=== PATIENT | female | born 2000 | race Caucasian/White ===

== ENCOUNTER 2019-10-05 19:50 | Inpatient (IN) | payer OTHER ==
[~2019-10-05 19:50] MED LIST: DEXTROSE 5%-LACTATED RINGERS 500 ML IV ONE
[2019-10-05] MEDS ORDERED: DEXTROSE 5%-LACTATED RINGERS 500 ML IV ONE (20:50)
[2019-10-05] MEDS ORDERED: OXYTOCIN 30 UNITS in 0.9% NS 30 UNIT/500 ML INFUS.BAG IVPB ONE (21:16)
[2019-10-05] MEDS ORDERED: AMPICILLIN SODIUM 2 GM VIAL ONE (21:16)
[2019-10-05] MEDS: OXYTOCIN 30 UNITS in 0.9% NS 30 UNIT/500 ML INFUS.BAG IVPB SCH (21:30)
[2019-10-05] MEDS ORDERED: AMPICILLIN SODIUM 250 MG VIAL IVPUSH ONE (21:44)
[2019-10-05 21:58] VITALS: BMI 25.1
[2019-10-05] MEDS ORDERED: DINOPROSTONE 10 MG VAGINAL SUPPOSITORY VG ONE (22:00)
--- NOTE | 2019-10-05 22:08 | HP ---
Past Medical History - Admission Chief Complaint: Postdates History of Present Illness: 19 yo , @ 40 weeks gestation, EDC 10/02/19, presents for induction of labor. Upon admission she was 3cm dilated with intact membrane. History Source: Patient Limitations to Obtaining History: No Limitations - Past Medical History ...: 1 ...Para: 0 - Past Surgical History Past Surgical History: Yes: None Hx Myomectomy: No Hx Transabdominal Cerclage: No - Smoking History Have you smoked in the past 12 months: No - Alcohol/Substance Use Hx Alcohol Use: No History of Substance Use: reports: None - Social History Usual Living Arrangement: Yes: With Significant Other History of Recent Travel: No Home Medications - Allergies Allergies/Adverse Reactions: Allergies Allergy/AdvReac Type Severity Reaction Status Date / Time No Known Allergies Allergy Verified 10/05/19 20:37 - Home Medications Home Medications: Ambulatory Orders Vitamins (Sjr) - 1 tab PO DAILY 10/05/19 Review of Systems - Review of Systems Constitutional: reports: No Symptoms Eyes: reports: No Symptoms HENT: reports: No Symptoms Neck: reports: No Symptoms Cardiovascular: reports: No Symptoms Respiratory: reports: No Symptoms Gastrointestinal: reports: No Symptoms Genitourinary: reports: Pain Breasts: reports: No Symptoms Reported Musculoskeletal: reports: No Symptoms Integumentary: reports: No Symptoms Neurological: reports: No Symptoms Endocrine: reports: No Symptoms Hematology/Lymphatic: reports: No Symptoms Psychiatric: reports: No Symptoms Pain Intensity: 2 Physical Exam - Maternity Constitutional: Yes: Well Nourished Eyes: Yes: Conjunctiva Clear HENT: Yes: Atraumatic Neck: Yes: Supple Cardiovascular: Yes: Regular Rate and Rhythm Lungs: Clear to auscultation - Abdominal Exam/OB Number of Fetuses: Single Presentation: Vertex - Vaginal Exam/OB Dilatation (cm): 3 Effacement (%): 80 Amniotic Membrane Status: Intact Presentation: Vertex/Position Station: -2 - Physical Exam Extremities: Yes: WNL ...Motor Strength: WNL Psychiatric: Yes: Alert, Oriented Problem List - Problems (1) 40 weeks gestation of Problems reviewed: Yes Code(s): Z3A.40 - 40 WEEKS GESTATION OF Assessment/Plan 40 weeks gestation of Admit to L&D Induction with Pitocin GBS prophylaxis
[2019-10-05 22:14] LABS: BASO % 0.3 % (0-2.0); EOS % 0.5 % (0-4.5); HEMATOCRIT 33.9 % (32.4-45.2); HEMOGLOBIN 11.2 GM/dL (10.7-15.3); LYMPH % 16.6 % (8-40); MCH 27.6 pg (25.7-33.7); MCHC 33.2 g/dl (32.0-36.0); MEAN CELL VOLUME 83.1 fl (80-96); MEAN PLT VOLUME 7.8 fl (7.5-11.1); MONO % 5.2 % (3.8-10.2); NEUT % 77.4 % (42.8-82.8); PLATELET COUNT 370 K/MM3 (134-434); RBC 4.08 M/mm3 (3.60-5.2); RDW 14.9 % (11.6-15.6); WHITE BLOOD COUNT 11.4 K/mm3 (4.0-10.0)
[2019-10-05] MEDS ORDERED: AMPICILLIN - 2 GM in SODIUM CHLORIDE 100 ML IVPB ONE (22:14)
[2019-10-05 22:28] LABS: INR 0.92 (0.83-1.09); PROTHROMBIN TIME (PATIENT) 10.9 SEC (9.7-13.0)
[2019-10-05 22:31] LABS: ACTIVATED PTT 26.3 SECONDS (25.2-36.5)
[2019-10-05 22:40] LABS: BLOOD UREA NITROGEN 9.8 mg/dL (7-18); CALCIUM 8.8 mg/dL (8.5-10.1); CREATININE 0.6 mg/dL (0.55-1.3); POTASSIUM 4.1 mmol/L (3.5-5.1)
[2019-10-05] MEDS ORDERED: DEXTROSE 5%-LACTATED RINGERS 1,000 ML IV SCH (22:50)
[2019-10-06] MEDS: DEXTROSE 5%-LACTATED RINGERS 1,000 ML IV SCH (00:30)
[2019-10-06] MEDS ORDERED: AMPICILLIN SODIUM 1 GM VIAL ONE ×3 (01:09→08:54)
[2019-10-06] MEDS: AMPICILLIN - 1 GM in SODIUM CHLORIDE 100 ML IVPB SCH ×4 (01:30→13:47)
[2019-10-06] MEDS ORDERED: PROMETHAZINE HCL 25 MG/1 ML VIAL ONE (08:05)
[2019-10-06] MEDS ORDERED: BUTORPHANOL TARTRATE 1 MG/ML VIAL ONE ×2 (08:05)
[2019-10-06] MEDS ORDERED: BUTORPHANOL TARTRATE 2 MG/ML VIAL IVPUSH PRN (08:48)
[2019-10-06] MEDS ORDERED: PROMETHAZINE HCL 25 MG/1 ML VIAL IVPB PRN (08:49)
[2019-10-06] MEDS ORDERED: OXYTOCIN 20 UNITS in 0.9% NS 20 UNIT/1,000 ML INFUS.BAG IV ONE ×2 (12:04→13:51)
[2019-10-06] MEDS ORDERED: LIDOCAINE HCL 1% PRESERVATIVE FREE - 30ML VIAL ONE (12:04)
[2019-10-06] MEDS: OXYTOCIN 20 UNITS in 0.9% NS 20 UNIT/1,000 ML INFUS.BAG IV SCH (12:30)
[2019-10-06] MEDS ORDERED: ACETAMINOPHEN 325 MG TABLET (FP) PO PRN (12:40)
[2019-10-06] MEDS ORDERED: BENZOCAINE 20% 57 GM BOTTLE TP PRN (12:40)
[2019-10-06] MEDS ORDERED: WITCH HAZEL 50% (TUCKS) 40 PAD/JAR PAD TP PRN (12:40)
[2019-10-06] MEDS ORDERED: BENZOCAINE 28 GM HEMORRHOIDAL OINTMENT TP PRN (12:40)
[2019-10-06] MEDS ORDERED: METHYLERGONOVINE MALEATE 0.2 MG/1 ML AMP IM PRN (12:40)
[2019-10-06] MEDS ORDERED: BISACODYL 10 MG SUPP.RECT RC PRN (12:40)
[2019-10-06] MEDS ORDERED: IBUPROFEN 600 MG TABLET (FP) PO PRN (12:40)
--- NOTE | 2019-10-06 12:44 | PN ---
Delivery - Delivery Vaginal Delivery: Spontaneous Type of Anesthesia: Local Episiotomy/Laceration: None EBL (cc): 300 Delivery, Single - Feeding Plan Initial Plan: Elected not to breastfeed exclusively throughout hospitalization Remarks - Remarks Remarks: Normal spontaneous vaginal delivery of a live boy over intact perineum. Nose / Oropharynx suctioned @ perineum. Cord clamped and cut. Baby handed to nurse. Placenta expelled spontaneously intact Mother in stable condition.
[2019-10-06] MEDS: SENNOSIDES/DOCUSATE COMBO (SENNA PLUS) TABLET (UD) PO PRN (22:15)
[2019-10-06] MEDS: FERROUS SO4 325 MG TABLET (FP) PO SCH (22:15)
[2019-10-07 09:23] LABS: BASO % 0.3 % (0-2.0); EOS % 0.3 % (0-4.5); HEMATOCRIT 29.1 % (32.4-45.2); HEMOGLOBIN 9.8 GM/dL (10.7-15.3); LYMPH % 17.3 % (8-40); MCH 27.8 pg (25.7-33.7); MCHC 33.6 g/dl (32.0-36.0); MEAN CELL VOLUME 82.7 fl (80-96); MEAN PLT VOLUME 7.4 fl (7.5-11.1); MONO % 6.4 % (3.8-10.2); NEUT % 75.7 % (42.8-82.8); PLATELET COUNT 329 K/MM3 (134-434); RBC 3.52 M/mm3 (3.60-5.2); RDW 14.8 % (11.6-15.6); WHITE BLOOD COUNT 19.1 K/mm3 (4.0-10.0)
[2019-10-07] MEDS: PRENATAL VITAMINS W/ FOLIC ACID TABLET (FP) PO SCH (09:40)
[2019-10-07] MEDS: FERROUS SO4 325 MG TABLET (FP) PO SCH ×2 (09:40→21:35)
[2019-10-07] MEDS ORDERED: DIPHTH,PERTUSS(ACELL),TET 0.5 ML DISP.SYRIN IM ONE (10:00)
[2019-10-07] MEDS ORDERED: CEFAZOLIN 1 GM/D5W 1 GM/50 ML BAG IVPB ONE (10:41)
--- NOTE | 2019-10-07 10:43 | PN ---
Post Progress Note - Subjective Subjective: 19 yo Para 1, status post vaginal delivery, seen and evaluated, Doing well. Post Day: 1 Type of Delivery: Vital Signs: Vital Signs Temperature 98.1 F 10/07/19 06:09 Pulse Rate 93 H 10/07/19 06:09 Respiratory Rate 20 10/07/19 06:09 Blood Pressure 115/59 L 10/07/19 06:09 O2 Sat by Pulse Oximetry (%) Breast Exam: Yes: Soft Uterus: Yes: Fundus Firm Abdomen/GI: Yes: Abdomen soft, Tolerating PO Lochia: Yes: Rubra Lochia, amount: Small Extremities: Yes: Calves non-tender Perineum: Yes: Intact Activity: Ambulating - Labs Labs: CBC WBC 19.1 K/mm3 (4.0-10.0) H 10/07/19 08:35 RBC 3.52 M/mm3 (3.60-5.2) L 10/07/19 08:35 Hgb 9.8 GM/dL (10.7-15.3) L 10/07/19 08:35 Hct 29.1 % (32.4-45.2) L 10/07/19 08:35 MCV 82.7 fl (80-96) 10/07/19 08:35 MCH 27.8 pg (25.7-33.7) 10/07/19 08:35 MCHC 33.6 g/dl (32.0-36.0) 10/07/19 08:35 RDW 14.8 % (11.6-15.6) 10/07/19 08:35 Plt Count 329 K/MM3 (134-434) 10/07/19 08:35 MPV 7.4 fl (7.5-11.1) L 10/07/19 08:35 Absolute Neuts (auto) 14.5 K/mm3 (1.5-8.0) H 10/07/19 08:35 Neutrophils % 75.7 % (42.8-82.8) 10/07/19 08:35 Lymphocytes % 17.3 % (8-40) 10/07/19 08:35 Monocytes % 6.4 % (3.8-10.2) 10/07/19 08:35 Eosinophils % 0.3 % (0-4.5) 10/07/19 08:35 Basophils % 0.3 % (0-2.0) 10/07/19 08:35 Nucleated RBC % 0 % (0-0) 10/07/19 08:35 Problem List - Problems (1) 40 weeks gestation of Problems reviewed: Yes Code(s): Z3A.40 - 40 WEEKS GESTATION OF (2) Status post normal vaginal delivery Problems reviewed: Yes Code(s): [id number] - Assessment/Plan Status post vaginal delivery. Stable Continue routine care
[2019-10-07] MEDS: DEXTROSE 5%-LACTATED RINGERS 1,000 ML IV SCH (20:44)
[2019-10-07] MEDS: OXYTOCIN 30 UNITS in 0.9% NS 30 UNIT/500 ML INFUS.BAG IVPB SCH (20:44)
[2019-10-07] MEDS: OXYTOCIN 20 UNITS in 0.9% NS 20 UNIT/1,000 ML INFUS.BAG IV SCH (20:45)
[2019-10-07] MEDS: AMPICILLIN - 1 GM in SODIUM CHLORIDE 100 ML IVPB SCH (20:48)
[2019-10-07] MEDS: SENNOSIDES/DOCUSATE COMBO (SENNA PLUS) TABLET (UD) PO PRN (21:35)
--- NOTE | 2019-10-08 07:17 | DS ---
Physical Exam-SPECIAL EDUCATION ASSISTANT Vital Signs: Vital Signs Temperature 98.5 F 10/07/19 22:00 Pulse Rate 91 H 10/07/19 22:00 Respiratory Rate 18 10/07/19 22:00 Blood Pressure 113/74 10/07/19 22:00 O2 Sat by Pulse Oximetry (%) Constitutional: Yes: Well Nourished Eyes: Yes: Conjunctiva Clear HENT: Yes: Atraumatic Neck: Yes: Supple Cardiovascular: Yes: Regular Rate and Rhythm Respiratory: Yes: Regular Gastrointestinal: Yes: Normal Bowel Sounds External Genitalia: Yes: Normal Vaginal Exam: Yes: Normal Cervix: Yes: Normal Uterus: Yes: Firm ....Post : Yes: Uterus firm, Slight lochia rubra Breast(s): Yes: WNL Musculoskeletal: Yes: WNL Extremities: Yes: WNL Neurological: Yes: Alert, Oriented ...Motor Strength: WNL Psychiatric: Yes: Alert, Oriented Labs: CBC, BMP 10/07/19 08:35 10/05/19 21:30 Delivery - Delivery Vaginal Delivery: Spontaneous Type of Anesthesia: None Episiotomy/Laceration: None EBL (cc): 300 Delivery, Single - Stages of Labor Date 1st Stage Initiatied: 10/06/19 Time 1st Stage Initiated: 00:00 Date 2nd Stage Initiated: 10/06/19 Time 2nd Stage Initiated: 12:00 Date of Delivery: 10/06/19 Time of Delivery: 12:28 Time Placenta Delivered: 12:30 - Condition of Infant Board Handler/Manager Studio Present: Yes Name: Michael Delacruz Infant Gender: Male Weight: 7 lb 1 oz Position: Left, OA Total Hours ROM (Hrs/Mins): 4hrs 30min - 1 Minute Total Score: 9 5 Minutes Total Score: 9 - [place] Feeding Plan Initial Plan: Elected not to breastfeed exclusively throughout hospitalization Discharge Summary Problems reviewed: Yes Current Active Problems 40 weeks gestation of (Acute) Status post normal vaginal delivery (Acute) Procedures: Principal: Normal spontaneous vaginal delivery Hospital Course: Routine care Health Concerns: None Plan of Treatment: Ambulation Analgesia as needed F/U with MD in 6 weeks Goals: Resume regular activities in 6 weeks Condition: Good - Instructions Diet, Activity, Other Instructions: Regular diet No douching, no sexual intercourse x 6 weeks F/U with MD in 6 weeks If pain, fever, or heavy bleeding call M.D. Referrals: Lisa Vuong MD [Staff Physician] - Disposition: HOME - Home Medications Comprehensive Discharge Medication List: Ambulatory Orders Vitamins (Sjr) - 1 tab PO DAILY 10/05/19
[2019-10-08 08:06] VITALS: BP 117/68; PULSE 81; TEMP 97.9
[2019-10-08] MEDS: FERROUS SO4 325 MG TABLET (FP) PO SCH (09:18)
[2019-10-08] MEDS: PRENATAL VITAMINS W/ FOLIC ACID TABLET (FP) PO SCH (09:18)
[2019-10-08 09:22] LABS: BASO % 0.6 % (0-2.0); EOS % 1.1 % (0-4.5); HEMATOCRIT 31.9 % (32.4-45.2); HEMOGLOBIN 10.5 GM/dL (10.7-15.3); LYMPH % 20.3 % (8-40); MCH 27.6 pg (25.7-33.7); MCHC 32.8 g/dl (32.0-36.0); MEAN CELL VOLUME 84.1 fl (80-96); MEAN PLT VOLUME 7.1 fl (7.5-11.1); MONO % 6.8 % (3.8-10.2); NEUT % 71.2 % (42.8-82.8); PLATELET COUNT 356 K/MM3 (134-434); RBC 3.79 M/mm3 (3.60-5.2); RDW 14.8 % (11.6-15.6); WHITE BLOOD COUNT 14.3 K/mm3 (4.0-10.0)
== END 2019-10-08 12:25 | disposition home or self-care (01) | DRG 560 ==
LOC: JLDR 19:50 → J3W 10-06 15:50
PROVIDERS: ADMIT Obstetrics & Gynecology; ATTEND Obstetrics & Gynecology
PROC: 10E0XZZ Delivery of Products of Conception, External Approach (ICD-10-PCS; principal; 2019-10-06)
DX: O48.0 Post-term pregnancy (principal); Z3A.40 40 weeks gestation of pregnancy; Z37.0 Single live birth
CPT/HCPCS: 36415; 59409; 80048; 85025; 85610; 85730; 86593; 86850; 86900; 86901; 87389; 90715

== ENCOUNTER 2021-06-30 12:30 | Inpatient (IN) | payer OTHER ==
[2021-06-30] MEDS ORDERED: AMPICILLIN SODIUM 2 GM VIAL ONE (13:40)
[2021-06-30] MEDS ORDERED: AMPICILLIN - 2 GM in SODIUM CHLORIDE 100 ML IVPB ONE (14:00)
[2021-06-30 14:07] VITALS: BMI 28.5
[2021-06-30] MEDS ORDERED: BUTORPHANOL TARTRATE 1 MG/ML VIAL IVPB PRN ×2 (14:10)
[2021-06-30] MEDS ORDERED: PROMETHAZINE HCL 25 MG/1 ML VIAL IVPB ONE (14:10)
[2021-06-30] MEDS ORDERED: ELECTROLYTE-148 SOLN 1,000 ML IV SCH (14:15)
[2021-06-30] MEDS ORDERED: PROMETHAZINE HCL 25 MG/1 ML VIAL ONE ×2 (14:18→16:59)
[2021-06-30] MEDS ORDERED: BUTORPHANOL TARTRATE 2 MG/ML VIAL ONE (14:18)
[2021-06-30 15:06] LABS: BASO % 0.3 % (0-2.0); EOS % 0.1 % (0-4.5); HEMATOCRIT 38.7 % (32.4-45.2); HEMOGLOBIN 13.1 GM/dL (10.7-15.3); LYMPH % 9.2 % (8-40); MCH 30.1 pg (25.7-33.7); MCHC 33.8 g/dl (32.0-36.0); NEUT % 86.4 % (42.8-82.8); PLATELET COUNT 274 10^3/uL (134-434); RBC 4.35 M/mm3 (3.60-5.2); WHITE BLOOD COUNT 15.4 K/mm3 (4.0-10.0)
[2021-06-30 15:12] LABS: INR 0.86 (0.83-1.09); PROTHROMBIN TIME (PATIENT) 10.5 SEC (9.7-13.0)
[2021-06-30 15:14] LABS: ACTIVATED PTT 25.9 SECONDS (25.2-36.5)
[2021-06-30 15:22] LABS: CALCIUM 8.6 mg/dL (8.5-10.1)
[2021-06-30 15:23] LABS: BLOOD UREA NITROGEN 9.3 mg/dL (7-18)
[2021-06-30 15:26] LABS: CREATININE 0.5 mg/dL (0.55-1.3)
[2021-06-30] MEDS ORDERED: BUTORPHANOL TARTRATE 1 MG/ML VIAL ONE (16:59)
[2021-06-30] MEDS ORDERED: SODIUM CHLORIDE 100 ML IVPB ONE (17:32)
[2021-06-30] MEDS ORDERED: AMPICILLIN SODIUM 1 GM VIAL ONE ×2 (17:32→21:45)
[2021-06-30] MEDS: AMPICILLIN - 1 GM in SODIUM CHLORIDE 100 ML IVPB SCH ×2 (17:44→21:50)
[2021-06-30] MEDS ORDERED: OXYTOCIN 20 UNITS in 0.9% NS 20 UNIT/1,000 ML INFUS.BAG IV ONE (19:34)
[2021-06-30] MEDS ORDERED: WITCH HAZEL 50% (TUCKS) 40 PAD/JAR PAD TP PRN (21:47)
[2021-06-30] MEDS ORDERED: BISACODYL 10 MG SUPP.RECT RC PRN (21:47)
[2021-06-30] MEDS ORDERED: METHYLERGONOVINE MALEATE 0.2 MG/1 ML AMP IM PRN (21:47)
[2021-06-30] MEDS ORDERED: BENZOCAINE 28 GM HEMORRHOIDAL OINTMENT TP PRN (21:47)
[2021-06-30] MEDS ORDERED: IBUPROFEN 600 MG TABLET (FP) PO PRN (21:47)
[2021-06-30] MEDS ORDERED: BENZOCAINE 20% 57 GM BOTTLE TP PRN (21:47)
[2021-06-30] MEDS ORDERED: ACETAMINOPHEN 325 MG TABLET (FP) PO PRN (21:47)
[2021-06-30] MEDS ORDERED: OXYTOCIN 20 UNITS in 0.9% NS 20 UNIT/1,000 ML INFUS.BAG IV SCH (22:00)
[2021-06-30] MEDS ORDERED: OXYTOCIN 30 UNITS in 0.9% NS 30 UNIT/500 ML INFUS.BAG IVPB SCH (22:00)
[2021-07-01] MEDS ORDERED: OXYTOCIN 20 UNITS in 0.9% NS 20 UNIT/1,000 ML INFUS.BAG IV ONE (01:21)
[2021-07-01 06:29] LABS: BASO % 0.2 % (0-2.0); HEMOGLOBIN 10.6 GM/dL (10.7-15.3); LYMPH % 9.2 % (8-40); MCH 30.6 pg (25.7-33.7); MCHC 34.3 g/dl (32.0-36.0); MEAN CELL VOLUME 89.2 fl (80-96); MEAN PLT VOLUME 8.3 fl (7.5-11.1); MONO % 5.8 % (3.8-10.2); NEUT % 84.8 % (42.8-82.8); PLATELET COUNT 238 10^3/uL (134-434); RBC 3.48 M/mm3 (3.60-5.2); RDW 14.5 % (11.6-15.6); WHITE BLOOD COUNT 18.6 K/mm3 (4.0-10.0)
[2021-07-01] MEDS: FERROUS SO4 325 MG TABLET (FP) PO SCH ×3 (09:20→16:58)
[2021-07-01] MEDS: PRENATAL VITAMINS W/ FOLIC ACID TABLET (FP) PO SCH (09:20)
[2021-07-01] MEDS: AMOX TR/POT CLAV 500MG/125MG TABLETS (FP) PO SCH ×2 (09:21→16:57)
[2021-07-01] MEDS ORDERED: SENNOSIDES/DOCUSATE COMBO (SENNA PLUS) TABLET (UD) PO PRN (22:00)
[2021-07-02] MEDS: FERROUS SO4 325 MG TABLET (FP) PO SCH (10:13)
[2021-07-02] MEDS: PRENATAL VITAMINS W/ FOLIC ACID TABLET (FP) PO SCH (10:13)
[2021-07-02 10:18] VITALS: BP 115/76; PULSE 69; TEMP 98.4
[2021-07-02] MEDS: AMOX TR/POT CLAV 500MG/125MG TABLETS (FP) PO SCH (10:19)
== END 2021-07-02 13:05 | disposition home or self-care (01) | DRG 560 ==
LOC: JDEL 12:30 → JLDR 13:35 → J3W 07-01 01:38
PROVIDERS: ADMIT Obstetrics & Gynecology; ATTEND Obstetrics & Gynecology
PROC: 10E0XZZ Delivery of Products of Conception, External Approach (ICD-10-PCS; principal; 2021-06-30)
DX: O48.0 Post-term pregnancy (principal); O72.1 Other immediate postpartum hemorrhage; O62.3 Precipitate labor; O24.419 Gestational diabetes mellitus in pregnancy, unspecified control; O69.1XX0 Labor and delivery complicated by cord around neck, with compression, not applicable or unspecified; Z3A.41 41 weeks gestation of pregnancy; Z37.0 Single live birth
CPT/HCPCS: 36415; 59409; 80048; 85025; 85610; 85730; 86780; 86850; 86900; 86901; C9803; U0003; U0005

== ENCOUNTER 2024-04-28 00:18 | Inpatient (IN) | payer OTHER ==
[2024-04-28] MEDS: ELECTROLYTE-148 SOLN 1,000 ML IV SCH (01:40)
[2024-04-28] MEDS ORDERED: LACTATED RINGERS SOLUTION 1,000 ML/1,000 ML INFUS.BAG IV SCH (02:15)
[2024-04-28] MEDS ORDERED: BUTORPHANOL TARTRATE 1 MG/ML VIAL ONE (02:37)
[2024-04-28] MEDS ORDERED: PROMETHAZINE HCL 25 MG/1 ML VIAL ONE (02:38)
[2024-04-28] MEDS: BUTORPHANOL TARTRATE 1 MG/ML VIAL IVPUSH ONE (02:45)
[2024-04-28] MEDS: PROMETHAZINE HCL 25 MG/1 ML VIAL IVPB ONE (02:45)
[2024-04-28 03:35] VITALS: BMI 28.7
[2024-04-28 03:35] LABS: BASO % 0.2 % (0-2.0); HEMATOCRIT 39.3 % (32.4-45.2); HEMOGLOBIN 13.3 GM/dL (10.7-15.3); LYMPH % 13.8 % (8-40); MCH 28.9 pg (25.7-33.7); MCHC 33.8 g/dl (32.0-36.0); MEAN CELL VOLUME 85.6 fl (80-96); MEAN PLT VOLUME 8.2 fl (7.5-11.1); MONO % 6.1 % (3.8-10.2); NEUT % 79.9 % (42.8-82.8); PLATELET COUNT 401 10^3/uL (134-434); RBC 4.59 M/mm3 (3.60-5.2); RDW 15.7 % (11.6-15.6); WHITE BLOOD COUNT 14.1 K/mm3 (4.0-10.0)
[2024-04-28 03:43] LABS: INR 0.92 (0.83-1.09); PROTHROMBIN TIME (PATIENT) 10.4 SEC (9.7-13.0)
[2024-04-28 03:46] LABS: ACTIVATED PTT 25.5 SECONDS (25.2-36.5)
[2024-04-28 03:49] LABS: POTASSIUM 3.8 mmol/L (3.5-5.1)
[2024-04-28 03:50] LABS: CALCIUM 9.4 mg/dL (8.5-10.1)
[2024-04-28 03:51] LABS: BLOOD UREA NITROGEN 7.7 mg/dL (7-18)
[2024-04-28 03:54] LABS: CREATININE 0.5 mg/dL (0.55-1.3)
[2024-04-28] MEDS ORDERED: LIDOCAINE HCL 1% PRESERVATIVE FREE - 30ML VIAL ONE (04:44)
[2024-04-28] MEDS ORDERED: OXYTOCIN 20 UNITS in 0.9% NS 20 UNIT/1,000 ML INFUS.BAG IV ONE (04:44)
[2024-04-28] MEDS: OXYTOCIN 20 UNITS in 0.9% NS 20 UNIT/1,000 ML INFUS.BAG IV SCH (07:10)
[2024-04-28] MEDS: METHYLERGONOVINE MALEATE 0.2 MG/1 ML AMP IM PRN (07:12)
[2024-04-28] MEDS ORDERED: IBUPROFEN 600 MG TABLET (FP) PO ONE (07:24)
[2024-04-28] MEDS ORDERED: WITCH HAZEL 50% (TUCKS) 40 PAD/JAR PAD TP PRN (07:28)
[2024-04-28] MEDS ORDERED: ACETAMINOPHEN 325 MG TABLET (FP) PO PRN (07:28)
[2024-04-28] MEDS ORDERED: BISACODYL 10 MG SUPP.RECT RC PRN (07:28)
[2024-04-28] MEDS ORDERED: BENZOCAINE 20% 57 GM BOTTLE TP PRN (07:28)
[2024-04-28] MEDS ORDERED: BENZOCAINE 28 GM HEMORRHOIDAL OINTMENT TP PRN (07:28)
[2024-04-28] MEDS ORDERED: oxyCODONE HCL 5 MG TABLET PO PRN (07:28)
[2024-04-28] MEDS: IBUPROFEN 600 MG TABLET (FP) PO PRN (07:30)
[2024-04-28 07:51] LABS: CORD BASE EXCESS -6.7 mmol/L (0-2); CORD HCO3 21.8 mmHg (20-29); CORD PCO2 53.8 mmHg (30-78); CORD pH 7.225 (7.14-7.44)
[2024-04-28 07:52] LABS: CORD HCO3 17.8 mmHg (20-29); CORD PCO2 34.4 mmHg (30-78); CORD pH 7.331 (7.14-7.44)
[2024-04-28] MEDS: PRENATAL VITAMINS W/ FOLIC ACID TABLET (FP) PO SCH (10:01)
[2024-04-28 13:16] LABS: POC NITRAZINE NEG
[2024-04-29 07:23] LABS: BASO % 0.6 % (0-2.0); EOS % 1.2 % (0-4.5); HEMATOCRIT 32.9 % (32.4-45.2); LYMPH % 26.1 % (8-40); MCH 29.2 pg (25.7-33.7); MCHC 33.6 g/dl (32.0-36.0); MEAN CELL VOLUME 87.1 fl (80-96); MEAN PLT VOLUME 8.3 fl (7.5-11.1); MONO % 7.2 % (3.8-10.2); NEUT % 64.9 % (42.8-82.8); PLATELET COUNT 323 10^3/uL (134-434); RBC 3.77 M/mm3 (3.60-5.2); WHITE BLOOD COUNT 14.6 K/mm3 (4.0-10.0)
[2024-04-29] MEDS: SENNOSIDES/DOCUSATE COMBO (SENNA PLUS) TABLET (UD) PO PRN (21:58)
[2024-04-30 11:42] VITALS: BP 123/81; PULSE 85; RESP 16; TEMP 98.5
== END 2024-04-30 13:05 | disposition home or self-care (01) | DRG 560 ==
LOC: JDEL 00:18 → JLDR 01:30 → J3W 09:50
PROVIDERS: ADMIT Obstetrics & Gynecology; ATTEND Obstetrics & Gynecology
PROC: 10E0XZZ Delivery of Products of Conception, External Approach (ICD-10-PCS; principal; 2024-04-28)
DX: O69.81X0 Labor and delivery complicated by cord around neck, without compression, not applicable or unspecified (principal); O72.1 Other immediate postpartum hemorrhage; Z3A.40 40 weeks gestation of pregnancy; Z37.0 Single live birth
CPT/HCPCS: 36415; 36600; 59409; 80048; 82803; 83986-QW; 85025; 85610; 85730; 86780; 86850; 86900; 86901